=== PATIENT | male | born 1995 ===

== ENCOUNTER 2022-04-12 22:27 | Observation (INO) | payer OTHER ==
[2022-04-13] MEDS ORDERED: ONDANSETRON 4 MG/2 ML INJ IV ONE (00:23)
[2022-04-13] MEDS ORDERED: SODIUM CHLORIDE 0.9% 1000 ML 1,000 ML IV ONE ×2 (00:23→02:24)
--- NOTE | 2022-04-13 00:44 | Emergency Department Report ---
ED General Adult HPI - General Chief complaint: Nausea/Vomiting/Diarrhea Stated complaint: WEAK/DEHYDRATED Time Seen by Provider: 04/13/22 00:23 Source: patient Mode of arrival: Ambulatory Limitations: No Limitations - History of Present Illness Initial comments: Patient is 26 years old male with no significant past medical history. Patient presented to the ER stating that he feel he is dehydrated. Patient is complaining of nausea vomiting and diarrhea for the whole day today. Patient also stated that he was working outside in the hot environment. He denied any abdominal pain, chest pain or shortness of breath. No fever or chills. - Related Data Allergies Allergy/AdvReac Type Severity Reaction Status Date / Time No Known Allergies Allergy Unverified 04/13/22 00:01 ED Review of Systems ROS: Stated complaint: WEAK/DEHYDRATED Other details as noted in HPI Comment: All other systems reviewed and negative Constitutional: denies: chills, fever Respiratory: denies: cough, shortness of breath, SOB with exertion Cardiovascular: denies: chest pain, palpitations Gastrointestinal: nausea, vomiting, diarrhea. denies: abdominal pain, constipation, hematemesis, melena, hematochezia Musculoskeletal: myalgia Neurological: denies: headache, weakness, numbness, paresthesias, confusion ED Past Medical Hx - Past Medical History Previous Medical History?: No - Surgical History Past Surgical History?: No Additional Surgical History: penile surgery when 7yo (thinks due to infection) - Social History Smoking Status: Never Smoker Substance Use Type: Alcohol ED Physical Exam - General Limitations: No Limitations General appearance: alert, in no apparent distress - Head Head exam: Present: atraumatic, normocephalic, normal inspection - Eye Eye exam: Present: normal appearance - ENT ENT exam: Present: mucous membranes dry - Neck Neck exam: Present: normal inspection, full ROM. Absent: tenderness, meningismus - Respiratory Respiratory exam: Present: normal lung sounds bilaterally - Cardiovascular Cardiovascular Exam: Present: regular rate, normal rhythm, normal heart sounds - GI/Abdominal GI/Abdominal exam: Present: soft, normal bowel sounds. Absent: distended, tenderness, guarding, rebound, rigid, organomegaly, mass, bruit, pulsatile mass, hernia - Extremities Exam Extremities exam: Present: normal inspection, full ROM, normal capillary refill. Absent: tenderness - Back Exam Back exam: Present: normal inspection, full ROM. Absent: CVA tenderness (R), CVA tenderness (L) - Neurological Exam Neurological exam: Present: alert, oriented X3, CN II-XII intact, normal gait, reflexes normal. Absent: motor sensory deficit - Psychiatric Psychiatric exam: Present: normal mood - Skin Skin exam: Present: warm, intact, normal color ED Course Vital Signs 04/13/22 04/13/22 00:01 04:41 Temperature 98.6 F Pulse Rate 90 Respiratory 18 16 Rate Blood Pressure 121/82 Blood Pressure 121/61 [Right] O2 Sat by Pulse 95 99 Oximetry ED Medical Decision Making - Lab Data Result diagrams: 04/13/22 01:15 04/13/22 01:15 - Medical Decision Making Patient is 26 years old male with no significant past medical history. Patient presented to the ER stating that he feel he is dehydrated. Patient is complaining of nausea vomiting and diarrhea for the whole day today. Patient also stated that he was working outside in the hot environment. He denied any abdominal pain, chest pain or shortness of breath. No fever or chills. Patient started on normal saline and Zofran. Labs reviewed and showed a potassium of 6.5, creatinine of 2.1 and a BUN of 31 and a CK of 2500. Patient received calcium chloride, albuterol, dextrose 50 and insulin. I discussed the patient with , food preparation worker and he stated that he will follow up with the patient. I discussed the patient with Dr. Figueredo, he agreed to admit the patient to medical service for further management. Critical Care Time: Yes Critical care time in (mins) excluding proc time.: 35 Critical care attestation.: If time is entered above; I have spent that time in minutes in the direct care of this critically ill patient, excluding procedure time. ED Disposition Clinical Impression: Acute renal failure due to rhabdomyolysis, Acute hyperkalemia Disposition: ADMITTED INPATIENT Is pt being admited?: Yes Condition: Stable
[2022-04-13 01:43] LABS: Hematocrit 50.2 % (35.5-45.6); Hemoglobin 16.8 gm/dl (11.8-15.2); Mean Corpuscular HGB Conc 34 % (32-34); Mean Corpuscular Volume 94 fl (84-94); Platelet Count 300 K/mm3 (140-440); Red Blood Count 5.36 M/mm3 (3.65-5.03); Red Cell Distribution Width 12.7 % (13.2-15.2)
[2022-04-13 01:48] LABS: Alanine Aminotransferase 71 units/L (7-56); Albumin 5.3 g/dL (3.9-5); BUN/Creatinine Ratio 15; Blood Urea Nitrogen 31 mg/dL (9-20); Calcium 10.1 mg/dL (8.4-10.2); Hemolysis Index 6
[2022-04-13 01:49] LABS: Bilirubin,Direct < 0.2 mg/dL (0-0.2)
[2022-04-13] MEDS ORDERED: DEXTROSE 50% IN WATER (25GM) 50 ML SYRINGE IV ONE (02:06)
[2022-04-13] MEDS ORDERED: INSULIN REGULAR, HUMAN 100 UNITS/1 ML IV ONE (02:06)
[2022-04-13] MEDS ORDERED: ALBUTEROL 2.5 MG/3 ML NEBU IH ONE (02:06)
[2022-04-13] MEDS ORDERED: CALCIUM CHLORIDE 1,000 MG in SODIUM CHLORIDE 0.9% 100 ML IV ONE (03:06)
--- NOTE | 2022-04-13 03:10 | Cat Scan Report ---
CT ABDOMEN AND PELVIS WITHOUT CONTRAST INDICATION / CLINICAL INFORMATION: ABDOMINAL PAIN. TECHNIQUE: Axial CT images were obtained through the abdomen and pelvis without IV contrast. All CT scans at this location are performed using CT dose reduction for ALARA by means of automated exposure control. COMPARISON: None available. FINDINGS: LOWER CHEST: No significant abnormality of the imaged chest. LIVER: No focal lesion. No acute findings. GALLBLADDER / BILE DUCTS: No significant abnormality. Biliary ducts grossly unremarkable. SPLEEN: No significant abnormality. PANCREAS: No significant abnormality. ADRENALS: No significant abnormality. KIDNEYS/URETERS: No stones or hydronephrosis. No solid renal lesion. STOMACH / DUODENUM / SMALL BOWEL: The stomach, duodenum, and small bowel demonstrate no significant a bnormality. No specific abnormality of the mesentery demonstrated. COLON: No significant abnormality. APPENDIX: No significant abnormality. PERITONEUM: No free air or free fluid are present within the abdomen or pelvis. LYMPH NODES: No significant adenopathy. AORTA / ARTERIES: No significant abnormality. IVC / VEINS: No significant abnormality. URINARY BLADDER: No significant abnormality. REPRODUCTIVE ORGANS: No significant abnormality. ADDITIONAL ABDOMINAL/PELVIC FINDINGS: None. SKELETAL SYSTEM: Bilateral pars defect L5-S1. IMPRESSION: 1. No imaging findings to suggest etiology of the provided symptoms. Signer Name: Karthik Jordan II, MD Signed: 04/13/2022 3:05 AM Workstation Name: [id number]
[2022-04-13 03:41] LABS: Band Neutrophils # (Manual) 0.2 K/mm3; Basophils % (Manual) 0 % (0.0-1.8); Eosinophils % (Manual) 0 % (0.0-4.3); Total Cells Counted 100
[2022-04-13 03:42] LABS: Platelet Estimate Consistent w Auto; RBC Morphology Normal
[2022-04-13] MEDS ORDERED: MORPHINE 2 MG/1 ML INJ IV PRN (04:08)
[2022-04-13] MEDS ORDERED: MORPHINE 4 MG/1 ML INJ IV PRN (04:08)
[2022-04-13] MEDS ORDERED: ACETAMINOPHEN 325 MG TAB PO PRN (04:08)
[2022-04-13] MEDS ORDERED: ONDANSETRON 4 MG/2 ML INJ IV PRN (04:08)
--- NOTE | 2022-04-13 04:15 | History and Physical Report ---
History of Present Illness Date of examination: 04/13/22 Date of admission: 04/13/22 Chief complaint: Nausea vomiting diarrhea History of present illness: 26 years old male with no significant past medical history. Patient presented to the ER stating that he feel he is dehydrated. Patient is complaining of nausea vomiting and diarrhea for the whole day today. Patient also stated that he was working outside in the hot environment. He denied any abdominal pain, chest pain or shortness of breath. No fever or chills. In the emergency room patient is found to have potassium of 6.5, creatinine of 2.1 and a BUN of 31 and a CK of 2500. Patient received calcium chloride, albuterol, dextrose 50 and insulin.'s were going to admit the patient. Case discussed with on-call nephrology who will see the patient in consultation we also put the patient on IV fluid Past History Past Surgical History: Other (penile surgery when 7yo (thinks due to infection)) Social history: alcohol abuse Family history: no significant family history Medications and Allergies Allergies Allergy/AdvReac Type Severity Reaction Status Date / Time No Known Allergies Allergy Unverified 04/13/22 00:01 Review of Systems All systems: negative Gastrointestinal: nausea, vomiting, diarrhea Exam - Constitutional Vitals: Temp Pulse Resp BP Pulse Ox 98.6 F 90 18 121/82 95 04/13/22 00:01 04/13/22 00:01 04/13/22 00:01 04/13/22 00:01 04/13/22 00:01 General appearance: Present: no acute distress, well-nourished - EENT Eyes: Present: PERRL ENT: hearing intact, clear oral mucosa - Neck Neck: Present: supple, normal ROM - Respiratory Respiratory effort: normal Respiratory: bilateral: diminished - Cardiovascular Heart Sounds: Present: S1 & S2. Absent: rub, click - Extremities Extremities: pulses symmetrical, No edema Peripheral Pulses: within normal limits - Abdominal General gastrointestinal: Present: soft, non-tender, non-distended, normal bowel sounds Male genitourinary: Present: normal - Integumentary Integumentary: Present: clear, warm, dry - Musculoskeletal Musculoskeletal: gait normal, strength equal bilaterally - Psychiatric Psychiatric: appropriate mood/affect, intact judgment & insight - Neurologic Neurologic: CNII-XII intact, moves all extremities Results - Labs CBC & Chem 7: 04/13/22 01:15 04/13/22 01:15 Labs: Laboratory Last Values WBC 12.0 K/mm3 (4.5-11.0) H 04/13/22 01:15 RBC 5.36 M/mm3 (3.65-5.03) H 04/13/22 01:15 Hgb 16.8 gm/dl (11.8-15.2) H 04/13/22 01:15 Hct 50.2 % (35.5-45.6) H 04/13/22 01:15 MCV 94 fl (84-94) 04/13/22 01:15 MCH 32 pg (28-32) 04/13/22 01:15 MCHC 34 % (32-34) 04/13/22 01:15 RDW 12.7 % (13.2-15.2) L 04/13/22 01:15 Plt Count 300 K/mm3 (140-440) 04/13/22 01:15 Add Manual Diff Complete 04/13/22 01:15 Total Counted 100 04/13/22 01:15 Seg Neutrophils % Client Success Director 04/13/22 01:15 Seg Neuts % (Manual) 91.0 % (40.0-70.0) H 04/13/22 01:15 Band Neutrophils % 2.0 % 04/13/22 01:15 Lymphocytes % (Manual) 5.0 % (13.4-35.0) L 04/13/22 01:15 Reactive Lymphs % (Man) 0 % 04/13/22 01:15 Monocytes % (Manual) 2.0 % (0.0-7.3) 04/13/22 01:15 Eosinophils % (Manual) 0 % (0.0-4.3) 04/13/22 01:15 Basophils % (Manual) 0 % (0.0-1.8) 04/13/22 01:15 Metamyelocytes % 0 % 04/13/22 01:15 Myelocytes % 0 % 04/13/22 01:15 Promyelocytes % 0 % 04/13/22 01:15 Blast Cells % 0 % 04/13/22 01:15 Nucleated RBC % Not Reportable 04/13/22 01:15 Seg Neutrophils # Man 10.9 K/mm3 (1.8-7.7) H 04/13/22 01:15 Band Neutrophils # 0.2 K/mm3 04/13/22 01:15 Lymphocytes # (Manual) 0.6 K/mm3 (1.2-5.4) L 04/13/22 01:15 Abs React Lymphs (Man) 0.0 K/mm3 04/13/22 01:15 Monocytes # (Manual) 0.2 K/mm3 (0.0-0.8) 04/13/22 01:15 Eosinophils # (Manual) 0.0 K/mm3 (0.0-0.4) 04/13/22 01:15 Basophils # (Manual) 0.0 K/mm3 (0.0-0.1) 04/13/22 01:15 Metamyelocytes # 0.0 K/mm3 04/13/22 01:15 Myelocytes # 0.0 K/mm3 04/13/22 01:15 Promyelocytes # 0.0 K/mm3 04/13/22 01:15 Blast Cells # 0.0 K/mm3 04/13/22 01:15 WBC Morphology Not Reportable 04/13/22 01:15 Hypersegmented Neuts Not Reportable 04/13/22 01:15 Hyposegmented Neuts Not Reportable 04/13/22 01:15 Hypogranular Neuts Not Reportable 04/13/22 01:15 Smudge Cells Not Reportable 04/13/22 01:15 Toxic Granulation Not Reportable 04/13/22 01:15 Toxic Vacuolation Not Reportable 04/13/22 01:15 Dohle Bodies Not Reportable 04/13/22 01:15 Pelger-Huet Anomaly Not Reportable 04/13/22 01:15 Bri Rods Not Reportable 04/13/22 01:15 Platelet Estimate Consistent w auto 04/13/22 01:15 Clumped Platelets Not Reportable 04/13/22 01:15 Plt Clumps, EDTA Not Reportable 04/13/22 01:15 Large Platelets Not Reportable 04/13/22 01:15 Giant Platelets Not Reportable 04/13/22 01:15 Platelet Satelliting Not Reportable 04/13/22 01:15 Plt Morphology Comment Not Reportable 04/13/22 01:15 RBC Morphology Normal 04/13/22 01:15 Dimorphic RBCs Not Reportable 04/13/22 01:15 Polychromasia Not Reportable 04/13/22 01:15 Hypochromasia Not Reportable 04/13/22 01:15 Poikilocytosis Not Reportable 04/13/22 01:15 Anisocytosis Not Reportable 04/13/22 01:15 Microcytosis Not Reportable 04/13/22 01:15 Macrocytosis Not Reportable 04/13/22 01:15 Spherocytes Not Reportable 04/13/22 01:15 Pappenheimer Bodies Not Reportable 04/13/22 01:15 Sickle Cells Not Reportable 04/13/22 01:15 Target Cells Not Reportable 04/13/22 01:15 Tear Drop Cells Not Reportable 04/13/22 01:15 Ovalocytes Not Reportable 04/13/22 01:15 Helmet Cells Not Reportable 04/13/22 01:15 [place] Bodies Not Reportable 04/13/22 01:15 [place] Rings Not Reportable 04/13/22 01:15 Jacqueline Cells Not Reportable 04/13/22 01:15 Bite Cells Not Reportable 04/13/22 01:15 Crenated Cell Not Reportable 04/13/22 01:15 Elliptocytes Not Reportable 04/13/22 01:15 Acanthocytes (Spur) Not Reportable 04/13/22 01:15 Rouleaux Not Reportable 04/13/22 01:15 Hemoglobin C Crystals Not Reportable 04/13/22 01:15 Schistocytes Not Reportable 04/13/22 01:15 Malaria parasites Not Reportable 04/13/22 01:15 Alex Bodies Not Reportable 04/13/22 01:15 Hem Pathologist Commnt No 04/13/22 01:15 Sodium 137 mmol/L (137-145) 04/13/22 01:15 Potassium 6.5 mmol/L (3.6-5.0) H* 04/13/22 01:15 Chloride 96.0 mmol/L (98-107) L 04/13/22 01:15 Carbon Dioxide 25 mmol/L (22-30) 04/13/22 01:15 Anion Gap 23 mmol/L 04/13/22 01:15 BUN 31 mg/dL (9-20) H 04/13/22 01:15 Creatinine 2.1 mg/dL (0.8-1.3) H 04/13/22 01:15 Estimated GFR 38 ml/min 04/13/22 01:15 BUN/Creatinine Ratio 15 % 04/13/22 01:15 Glucose 113 mg/dL (75-100) H 04/13/22 01:15 POC Glucose 122 mg/dL (70-105) H 04/13/22 02:37 Calcium 10.1 mg/dL (8.4-10.2) 04/13/22 01:15 Total Bilirubin 0.50 mg/dL (0.1-1.2) 04/13/22 01:15 Direct Bilirubin < 0.2 mg/dL (0-0.2) 04/13/22 01:15 Indirect Bilirubin 0.3 mg/dL 04/13/22 01:15 AST 107 units/L (5-40) H 04/13/22 01:15 ALT 71 units/L (7-56) H 04/13/22 01:15 Alkaline Phosphatase 107 units/L (35-129) 04/13/22 01:15 Total Creatine Kinase 2524 units/L (55-170) H 04/13/22 01:15 Total Protein 9.4 g/dL (6.3-8.2) H 04/13/22 01:15 Albumin 5.3 g/dL (3.9-5) H 04/13/22 01:15 Albumin/Globulin Ratio 1.3 % 04/13/22 01:15 - Imaging and Cardiology CT scan - abdomen: report reviewed Assessment and Plan VTE prophylaxis?: Chemical Plan of care discussed with patient/family: Yes - Patient Problems (1) LUPE (acute kidney injury) Current Visit: Yes Status: Acute Plan to address problem: Admit the patient to the medical telemetry. Avoid nephrotoxic drug. Renally dose medication. Half-normal saline at the rate of 150 cc/h. Reconsult nephr ology for evaluation. Recheck BMP in the morning (2) Acute hyperkalemia Current Visit: Yes Status: Acute Plan to address problem: Avoid nephrotoxic drug. Renally dose medication. Half-normal saline at the rate of 150 cc/h. Patient received calcium chloride, albuterol, dextrose 50 and insulin. consult nephrology for evaluation. Recheck BMP in the morning (3) Rhabdomyolysis Current Visit: Yes Status: Acute Plan to address problem: Half-normal saline at the rate of 150 cc/h. Reconsult nephrology for evaluation. Recheck BMP/ ck in the morning (4) Nausea vomiting and diarrhea Current Visit: Yes Status: Acute Plan to address problem: Half-normal saline at the rate of 150 cc/h. Pepcid 20 mg IV every 12 hours. Zofran 4 mg IV every 6 hours as needed. Recheck BMP in the morning (5) DVT prophylaxis Current Visit: Yes Status: Acute Plan to address problem: Heparin 5000 units subcu every 12 hours for DVT prophylaxis. Pepcid 20 mg IV every 12 hours for GI prophylaxis. Patient is a full code
[2022-04-13] MEDS ORDERED: SODIUM CHLORIDE 0.45% 1000 ML 1,000 ML IV SCH (05:00)
[2022-04-13 07:30] VITALS: BP 123/63
[2022-04-13] MEDS ORDERED: IPRATROPIUM/ALBUTEROL SULFATE 3 ML AMPUL.NEB IH SCH (08:00)
[2022-04-13 09:39] LABS: BUN/Creatinine Ratio 22; Blood Urea Nitrogen 28 mg/dL (9-20); Calcium 9.9 mg/dL (8.4-10.2); Hemolysis Index 33
[2022-04-13] MEDS ORDERED: FAMOTIDINE 20 MG/2 ML INJ IV SCH (10:00)
[2022-04-13] MEDS ORDERED: HEPARIN 5,000 UNIT/1 ML VIAL SUB-Q SCH (10:00)
--- NOTE | 2022-04-13 10:16 | Electrocardiograph Report ---
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
--- NOTE | 2022-04-13 11:17 | Discharge Summary ---
Providers - Providers Date of Admission: 04/13/22 04:08 Date of discharge: 04/13/22 Attending physician: BRIAN ST MD 04/13/22 02:36 Consult to Physician [CONS] Stat Comment: Dr. Hernandez spoke with Dr. Pappas @ [phone] Consulting Provider: AMARJIT PAPPAS Physician Instructions: Reason For Exam: Acute renal failure secondary to rhabdomyolysis Primary care physician: BILLET HEADER Hospitalization Reason for admission: Rhabdomyolysis, ATN secondary to rhabdomyolysis, hyperkalemia Condition: Stable Pertinent studies: Reviewed. Procedures: None. Hospital course: The patient is a 26-year-old male with no significant past medical history who presents with times of dehydration, nausea, vomiting, and diarrhea had started earlier that day. The patient endorses this being his second episode of dehydration requiring him to be hospitalized. 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 On presentation the patient was hemodynamically stable; however, his labs are remarkable for hyperkalemia of 6.5 and an LUPE of 2.1. Patient also had a creatinine kinase of 2524. The patient was admitted for further management. He was started on IV fluid resuscitation and received calcium chloride, albuterol, D50, and insulin for medical management of his hyperkalemia. The patient's labs have since resolved, the patient is medically cleared for discharge. 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 Patient expresses understanding. Disposition: 01 HOME / SELF CARE / HOMELESS Final Discharge Diagnosis (Prints w/discharge instructions): Rhabdomyolysis, ATN secondary to rhabdomyolysis, hyperkalemia, vomiting, diarrhea Time spent for discharge: 45 min Core Measure Documentation - Palliative Care Palliative Care/ Comfort Measures: Not Applicable - Core Measures Any of the following diagnoses?: none Exam - Constitutional Vitals: Temp Pulse Resp BP Pulse Ox 99.1 F 92 H 20 123/63 98 04/13/22 07:16 04/13/22 08:20 04/13/22 08:20 04/13/22 07:16 04/13/22 10:21 General appearance: Present: no acute distress, well-nourished - EENT Eyes: Present: PERRL, EOM intact ENT: hearing intact, clear oral mucosa, dentition normal - Neck Neck: Present: supple, normal ROM - Respiratory Respiratory effort: normal Respiratory: bilateral: CTA - Cardiovascular Rhythm: regular Heart Sounds: Present: S1 & S2 - Extremities Extremities: no ischemia, pulses intact, pulses symmetrical, No edema, normal temperature, normal color, Full ROM Peripheral Pulses: within normal limits - Abdominal General gastrointestinal: Present: soft, non-tender, non-distended, normal bowel sounds Male genitourinary: Present: deferred - Rectal Rectal Exam: deferred - Integumentary Integumentary: Present: clear, warm, dry - Musculoskeletal Musculoskeletal: strength equal bilaterally - Psychiatric Psychiatric: appropriate mood/affect, intact judgment & insight, memory intact, cooperative - Neurologic Neurologic: CNII-XII intact, moves all extremities - Allied Health Allied health notes reviewed: nursing Plan Activity: no restrictions Diet: regular Additional Instructions: The patient is a 26-year-old male with no significant past medical history who presents with times of dehydration, nausea, vomiting, and diarrhea had started earlier that day. The patient endorses this being his second episode of dehydration requiring him to be hospitalized. 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 On presentation the patient was hemodynamically stable; however, his labs are remarkable for hyperkalemia of 6.5 and an LUPE of 2.1. Patient also had a creatinine kinase of 2524. The patient was admitted for furt her management. He was started on IV fluid resuscitation and received calcium chloride, albuterol, D50, and insulin for medical management of his hyperkalemia. The patient's labs have since resolved, the patient is medically cleared for discharge. 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 Patient expresses understanding. Care Plan Goals: Patient is medically clear for discharge. Assessment: The patient is a 26-year-old male with no significant past medical history who presents with times of dehydration, nausea, vomiting, and diarrhea had started earlier that day. The patient endorses this being his second episode of dehydration requiring him to be hospitalized. 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 On presentation the patient was hemodynamically stable; however, his labs are remarkable for hyperkalemia of 6.5 and an LUPE of 2.1. Patient also had a creatinine kinase of 2524. The patient was admitted for further management. He was started on IV fluid resuscitation and received calcium chloride, albuterol, D50, and insulin for medical management of his hyperkalemia. The patient's labs have since resolved, the patient is medically cleared for discharge. 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 Patient expresses understanding. Follow up with: BUCK RICH MD [Primary Care Provider] - 3-5 Days NORM SULLIVAN MD [Staff Physician] - 14 Days
== END 2022-04-13 12:00 | disposition home or self-care (01) ==
LOC: ED 22:27 → 4A 04-13 04:08
PROVIDERS: ADMIT Hospitalist; ATTEND Student in an Organized Health Care Education/Training Program
DX: N17.9 Acute kidney failure, unspecified (principal); E87.5 Hyperkalemia; M62.82 Rhabdomyolysis; R11.2 Nausea with vomiting, unspecified; R19.7 Diarrhea, unspecified; R10.9 Unspecified abdominal pain; Z79.899 Other long term (current) drug therapy; Z98.890 Other specified postprocedural states
CPT/HCPCS: 36415; 74176; 80048; 80076; 82550; 82962; 85025; 93005; 94640; 96361; 96365; 96366; 96372; 96375; 99291; G0378; J1644; J2405; J3490; J7030; 85007; Q9967; J1815